=== PATIENT | female | born 1975 | race Caucasian/White ===

== ENCOUNTER 2024-11-30 17:17 | Emergency (ER) | payer BC, SELFPAY ==
[2024-11-30 17:19] VITALS: BP 141/87
[2024-11-30 17:37] LABS: Hematocrit 41.0 % (37.0-47.0); Hemoglobin 12.2 g/dL (12.0-16.0); Mean Corp Hgb Conc. 29.8 g/dL (33.0-37.0); Mean Corpuscular Volume 70.2 fL (81.0-99.0); Nucleated Red Blood Cells % 0 %; Platelet Count 271 10^3/uL (130-400); Red Cell Dist. Width 14.6 % (11.5-14.5)
[2024-11-30 17:52] LABS: ALT (SGPT) 18 U/L (0-35); AST (SGOT) 25 U/L (14-36); Albumin 4.5 g/dl (3.5-5.0); Alkaline Phosphatase 74 U/L (38-126); Blood Urea Nitrogen 12 mg/dl (7-17); Calcium 9.3 mg/dl (8.4-10.2); Carbon Dioxide 25 mmol/L (22-30); Chloride 104 mmol/L (98-107); Glucose 96 mg/dl (70-99); Lipase 204 U/L (23-300); Potassium 3.7 mmol/L (3.5-5.1); Sodium 134 mmol/L (135-145); Total Protein 7.8 g/dl (6.3-8.2); eGFR > 60.00
[2024-11-30 21:39] VITALS: BP 129/77
[2024-11-30 21:40] VITALS: BMI 28.2
[2024-11-30 22:00] VITALS: BP 133/81
[2024-11-30] MEDS: MAALOX 50 PO (22:31)
--- NOTE | 2024-12-01 00:08 | ED.GENMED ---
History of Present Illness
General
Chief Complaint: Abdominal Pain
Source: patient
Time Seen by Provider: 11/30/24 22:06
History of Present Illness
History of Present Illness:
Note:
CHIEF COMPLAINT(S)
Right upper quadrant abdominal pain.
HISTORY OF PRESENT ILLNESS
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 She noted the onset of
symptoms occurring approximately one hour postprandial. The pain is characterized as a dull ache, different from any previous episodes she might have experienced. The patient attempted relief with lmir-lxe-sddgjkb antacids (Tums) without lasting
improvement. She denies any prior history of similar pain.
A recent ultrasound reportedly appeared normal, yet the gallbladder remains a potential source of symptoms as discussed. The physician explained possible gallbladder-related pathology, including gallstones or obstruction, that may not be fully
captured via ultrasound. Other potential causes considered include gastritis or peptic ulcer disease. Current laboratory results are normal, providing some reassurance against certain acute processes.
PLAN
The plan includes administering a medication designed for immediate symptom relief, potentially a gastrointestinal 'cocktail' to determine if it alleviates the discomfort. Should the patient�s symptoms persist or escalate, a computed tomography (CT)
scan may be considered for further diagnostic evaluation.
PHYSICAL EXAM
General: Alert, no acute distress.
Skin: Warm, dry.
Head: Normocephalic, atraumatic.
Neck: Supple, trachea midline.
Eyes, Ears, Nose, Mouth and Throat: Oral mucosa moist.
Cardiovascular: Normal peripheral perfusion, No edema.
Respiratory: Respirations are non-labored.
Gastrointestinal: Abdomen nondistended; tenderness noted in the right upper quadrant, notably upon palpation. Negative Rolon sign. Negative McBurney's point tenderness.
Back: Normal range of motion, Normal alignment.
Musculoskeletal: Normal range of motion, normal strength.
Neurological: Alert and oriented to person, place, time, and situation, No focal neurological deficit observed.
Psychiatric: Cooperative, appropriate mood & affect.
DIFFERENTIAL DIAGNOSIS
The Differential Diagnosis includes, in no particular order and is not limited to:
1. Gallstone Disease (Cholelithiasis)
2. Biliary Colic
3. Acute Cholecystitis
4. Peptic Ulcer Disease
5. Gastritis
6. Hepatitis
7. Pancreatitis
8. Renal Colic
9. Pneumonia (referred pain)
10. Myocardial Infarction (atypical presentation)
Disposition:
SUMMARY OF ENCOUNTER
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 Initial relief
was unsatisfactory with nzcx-sig-rqyrzpi medications. A recent ultrasound did not reveal any gallstones or biliary obstruction, but noted a 2mm gallbladder polyp. In the emergency department, she received sucralfate, which helped resolve her pain.
DISPOSITION
The patient expressed a desire to be discharged and her condition was satisfactory upon discharge.
ASSESSMENT
The patient experienced right upper quadrant abdominal pain, which resolved after administration of sucralfate, suggesting a possible gastrointestinal etiology, such as gastritis or peptic ulcer disease. Gallbladder polyp noted on ultrasound.
EMERGENCY TREATMENTS ADMINISTERED
Sucralfate was administered in the emergency department, which offered pain relief.
PLAN
The patient plans to follow up with a hopper attendant for further evaluation following the resolution of symptoms and wants to explore the underlying cause of the symptoms, including the management options for the gallbladder polyp.
INDEPENDENT REVIEW OF LABS AND INTERPRETATION OF TESTS
My independent ultrasound interpretation shows no evidence of cholelithiasis or biliary obstruction and identifies a 2mm gallbladder polyp.
PATIENT EDUCATION AND COUNSELING
The patient was informed about the potential causes of her abdominal pain and the findings of the ultrasound. It was advised that she should follow up with a hopper attendant for further evaluation of the gallbladder polyp and to explore
additional causes of her symptoms.
FOLLOW-UP INSTRUCTIONS
The patient was advised to follow up with a hopper attendant for further evaluation and treatment options.
MEDICATION RECONCILIATION
Sucralfate was administered in the emergency department for symptomatic relief.
MEDICAL DECISION MAKING
- Complexity of Data Reviewed: Differentials include Gallstone Disease (Cholelithiasis), Biliary Colic, Acute Cholecystitis, Peptic Ulcer Disease, Gastritis, Hepatitis, Pancreatitis, Renal Colic, Pneumonia (referred pain), Myocardial Infarction
(atypical presentation).
- Data:
Category 1: Independent interpretation of ultrasound indicates no cholelithiasis or biliary obstruction. Gallbladder polyp noted.
- Risk:
Consideration of Admission/Observation: Escalation of care including admission/observation was considered given the complexity and risk of the patients presenting complaint, exam findings, and/or their underlying comorbidities. However, ultimately I
feel the patient is safe for outpatient management with close follow-up. Reasoning: Work-up reassuring, does not reveal any acute life/organ-threatening processes, patients symptoms well controlled upon reevaluation, reexamination is reassuring,
vitals are stable, patient agreeable with discharge, reliable for follow-up.
DIAGNOSIS
- Abdominal pain, unspecified (R10.9)
- Gallbladder polyp (K82.0)
Phy Exam
Physical Exam
Physical Exam:
.
Course
Orders/Labs/Results
Orders:
Orders
11/30/24 17:27
Complete Blood Count/With Diff Urgent
Comprehensive Metabolic Panel Urgent
Lipase Urgent
11/30/24 19:02
EKG [Electrocardiogram (*1)] Urgent
Reason for Study: Chest Pain
EKG- Treatment ONCE
11/30/24 19:31
US Abdomen Complete/Upper Urgent
Comment:
Reason For Exam: RUQ pain
11/30/24 22:21
Mag Hydrox/Al Hydrox/Simeth [Maalox] 30 ml Phenobarb/Hyoscy/Atropine/Scop [] 10 ml Viscous Lidocaine 2% [Xylocaine Viscous Cup] 10 ml PO NOW
11/30/24 22:24
Urinalysis Reflex To Culture Urgent
Date Specimen was Collected: 12/01/24
Time Specimen was Collected: 00:04
11/30/24 22:29
Mag Hydrox/Al Hydrox/Simeth [Maalox] 30 ml .ROUTE .STK-MED ONE
Phenobarb/Hyoscy/Atropine/Scop [] 10 ml .ROUTE .STK-MED ONE
Viscous Lidocaine 2% [Xylocaine Viscous Cup] 15 ml .ROUTE .STK-MED ONE
Abnormal Lab Results
11/30/24
17:27
RBC 5.84 H 10^6/uL
(4.20-5.40)
MCV 70.2 L fL
(81.0-99.0)
MCH 20.9 L pg
(27.0-31.0)
MCHC 29.8 L g/dL
(33.0-37.0)
RDW 14.6 H %
(11.5-14.5)
Sodium 134 L mmol/L
(135-145)
11/30/24 17:27
11/30/24 17:27
Vital Signs
Initial and Last Documented VS:
Initial Vital Signs
Temp Pulse Resp BP Pulse Ox
98.6 F 69 16 141/87 99
11/30/24 17:19 11/30/24 17:19 11/30/24 17:19 11/30/24 17:19 11/30/24 17:19
Last Documented Vital Signs
Temp Pulse Resp BP Pulse Ox
98.6 F 69 16 133/81 97
11/30/24 17:19 11/30/24 17:19 11/30/24 17:19 11/30/24 22:00 12/01/24 00:09
*Pulse Oximetry
SaO2: 97
Oxygen Mode of Delivery: Room air
Patient hypoxic: no
*Critical Care Note
Total Time (30-74mins, 75-104mins- exclusive of procedures): Not Applicable
ED Attending Note
-
Portions of this chart may have been created with voice recognition software.� Occasional wrong word or��sound alike� substitutions may have occurred due to the inherent limitations of voice recognition software.
Discharge Plan
Departure
Patient Disposition: Home (Routine Discharge)
Date of Disposition: 12/01/24
Time of Disposition: 00:08
Patient with high blood pressure during this ER visit?: Yes
Condition: Good
Discharge Problem:
Gastritis, Abdominal pain
Instructions: Acid Reflux and GERD in Adults (DC), Gastritis (DC), Abdominal Pain
Prescriptions:
New
pantoprazole 40 mg tablet,delayed release (DR/EC)
40 mg PO DAILY Qty: 20 0RF
sucralfate 100 mg/mL suspension
1 g PO BID Qty: 1000 0RF
Referrals:
Vinod Lebron IV, MD [Family Provider, [facility]]
Activity Restrictions/Additional Instructions:
Your prescriptions were sent electronically to the pharmacy that you specified.
Thank You for choosing [facility].
It was a pleasure meeting you and taking part in your care. We hope for your continued healing and wellness.
Please read discharge instructions in their entirety. However, they are for general education and may not describe your exact diagnosis at discharge. Information on your ER visit and medical conditions were discussed with you along with appropriate
follow up information...
If indicated, please take your medications as instructed and indicated on discharge paperwork.
Please schedule a follow up appointment as directed. Call to schedule an appointment
Please return to the emergency department with ANY change in, persisting, or worsening of symptoms. If any of your symptoms do not improve, or persist, or become more severe within 6-12 hours, please return to the emergency department for further
care.
Please return to the emergency department if you develop a headache, neck pain/stiffness, fever greater than 100.4F, chest pain, shortness of breath, persistent nausea, vomiting, slurred speech, difficulty walking, numbness/tingling, weakness, signs
of infection or any other symptoms that are worrisome to you.
If you have any questions or concerns please do not hesitate to call the Hospital at .
Interventions
Interventions:
*Risk Screen - Suicide Last Done: 11/30/24 17:23
*General Assessment Last Done: 11/30/24 21:40
*Neglect/Abuse Screening Last Done: 11/30/24 17:23
*ED- Fall Risk Assessment Last Done: 11/30/24 21:40
*ED COVID-19 Vaccine History Last Done: 11/30/24 21:40
*ED Influenza Vaccine History Last Done: 11/30/24 21:40
*Nursing Disposition Last Done: 12/01/24 00:19
PF-Qodxte-Bbnvbsmoix Assessment Last Done: 11/30/24 21:40
Discharge Date and Time
Discharge Date/Time: 12/01/24 00:20
Print Language: TAIWANESE
[2024-12-01 00:15] LABS: Urine Character Clear (Clear)
== END 2024-12-01 00:20 | disposition home or self-care (01) ==
LOC: EMR 17:17
PROVIDERS: Emergency Medicine; EMERGENCY PHYSICIAN Student in an Organized Health Care Education/Training Program; FAMILY PHYSICIAN Family Medicine
DX: K29.70 Gastritis, unspecified, without bleeding (principal); K82.4 Cholesterolosis of gallbladder
CPT/HCPCS: 99284; 76700; 80053; 81003; 83690; 85025; 93005